=== PATIENT | male | born 1950 | race Two or more races ===

== ENCOUNTER 2018-08-28 18:36 | Emergency (ER) | payer OTHER ==
[~2018-08-28] VITALS: Ht 180.3 cm; Wt 90.7 kg
[2018-08-28 19:12] LABS: BASO # 0.1 x10^3/uL (0.0-0.2); BASO % 1 % (0-3); EOS % 0 % (0-3); HEMATOCRIT 45.3 % (39.0-53.0); HEMOGLOBIN 15.4 g/dL (13.0-17.5); LYMPH # 1.7 x10^3/uL (1.0-4.8); LYMPH % 19 % (24-48); MEAN CORPUSCULAR HEMOGLOBIN 30 pg (25-35); MEAN CORPUSCULAR HGB CONC 34 g/dL (31-37); MEAN CORPUSCULAR VOLUME 89 fL (79-100); MONO # 1.4 x10^3/uL (0.0-1.1); MONO % 16 % (0-9); NEUT # 5.9 x10^3uL (1.8-7.7); NEUT % 65 % (31-73); PLATELET COUNT 137 x10^3/uL (140-400); RED BLOOD COUNT 5.07 x10^6/uL (4.30-5.70); RED CELL DISTRIBUTION WIDTH 14.4 % (11.5-14.5); WHITE BLOOD COUNT 9.1 x10^3/uL (4.0-11.0)
[2018-08-28 19:21] LABS: CALCIUM 8.7 mg/dL (8.5-10.1); CREATININE 1.1 mg/dL (0.7-1.3); GFR 66.6; POTASSIUM 3.7 mmol/L (3.5-5.1)
[2018-08-28 19:25] LABS: PROTHROMBIN TIME PATIENT 13.5 SEC (11.7-14.0)
[2018-08-28 19:27] LABS: ALBUMIN 3.6 g/dL (3.4-5.0); ALBUMIN/GLOBULIN RATIO 0.9 (1.0-1.7); MAGNESIUM 2.4 mg/dL (1.8-2.4); TOTAL BILIRUBIN 0.8 mg/dL (0.2-1.0); TOTAL PROTEIN 7.8 g/dL (6.4-8.2)
[2018-08-28] MEDS ORDERED: IV NORMAL SALINE 1000ML BAG 1,000 ML IV ONE (19:30)
[2018-08-28] MEDS ORDERED: DEXAMETHASONE SOD PHOS 20 MG/5 ML VIAL. IV ONE (19:30)
[2018-08-28 19:35] LABS: CREATINE KINASE 66 U/L (39-308)
--- NOTE | 2018-08-28 19:42 | PHYS DOC ---
Past Medical History Past Medical History: No Pertinent History Past Surgical History: No Surgical History Alcohol Use: Occasionally Drug Use: None Adult General Chief Complaint Chief Complaint: WEAKNESS/GENERALIZED HPI HPI Patient is a 68 year old male who presents with two days of fever, chills, cough, headache, and diarrhea. He has not taken his temperature at home but has felt warm with nighttime chills. Temperature in ED was 99.5 orally. He has not taken any medications for his symptoms. Patient denies any sick contacts. He has not been able to eat food since his symptoms began but has been able to drink wa ter. Patient denies sputum production, bloody diarrhea, abdominal pain, neck pain, dizziness, sore throat or focal weakness. He states he is "just not feeling well" and that he "hurts all over". Review of Systems Review of Systems Constitutional: Reports fever or chills [] Eyes: Denies change in visual acuity, redness, or eye pain [] HENT: Reports runny nose. Denies sore throat. [] Respiratory: Denies cough or shortness of breath [] Cardiovascular: No additional information not addressed in HPI [] GI: Denies abdominal pain, nausea, vomiting, bloody stools or diarrhea [] : Denies dysuria or hematuria [] Musculoskeletal: Denies back pain or joint pain [] Integument: Denies rash or skin lesions [] Neurologic: Denies headache, focal weakness or sensory changes [] Endocrine: Denies polyuria or polydipsia [] All other systems were reviewed and found to be within normal limits, except as documented in this note. Current Medications Current Medications Current Medications Medications (Trade) Dose Ordered Sig/Jenny Start Time Stop Time Status Last Admin Dose Admin Dexamethasone Sodium Phosphate (Decadron) 10 mg 1X ONCE 08/28/18 20:00 08/28/18 20:01 DC 08/28/18 20:00 10 MG Sodium Chloride 1,000 ml @ 1,000 mls/hr 1X ONCE 08/28/18 19:30 08/28/18 20:29 DC 08/28/18 20:00 1,000 MLS/HR Allergies Allergies Allergies Coded Allergies Type Severity Reaction Last Updated Verified No Known Drug Allergies 08/28/18 No Physical Exam Physical Exam Constitutional: Well developed, well nourished, no acute distress, non-toxic appearance. [] HENT: Normocephalic, atraumatic, bilateral external ears normal, oropharynx moist, no oral exudates, nose normal. [] Eyes: PERRLA, EOMI, conjunctiva normal, no discharge. [] Neck: Normal range of motion, no tenderness, supple, no stridor. [] Cardiovascular:Heart rate regular rhythm, no murmur [] Lungs & Thorax: Bilateral breath sounds clear to auscultation [] Abdomen: Bowel sounds normal, soft, no tenderness, no masses, no pulsatile masses. [] Skin: Warm, dry, no erythema, no rash. [] Back: No tenderness, no CVA tenderness. [] Extremities: No tenderness, no cyanosis, no clubbing, ROM intact, no edema. [] Neurologic: Alert and oriented X 3, normal motor function, normal sensory function, no focal deficits noted. [] Psychologic: Affect normal, judgement normal, mood normal. [] Current Patient Data Vital Signs Vital Signs Date Time Temp Pulse Resp B/P (MAP) Pulse Ox O2 Delivery O2 Flow Rate FiO2 08/28/18 21:32 77 96 08/28/18 20:33 20 08/28/18 18:42 99.5 126/75 (92) Room Air 99.5 Lab Values Laboratory Tests Test 08/28/18 19:02 08/28/18 20:50 White Blood Count 9.1 x10^3/uL (4.0-11.0) Red Blood Count 5.07 x10^6/uL (4.30-5.70) Hemoglobin 15.4 g/dL (13.0-17.5) Hematocrit 45.3 % (39.0-53.0) Mean Corpuscular Volume 89 fL (79-100) Mean Corpuscular Hemoglobin 30 pg (25-35) Mean Corpuscular Hemoglobin Concent 34 g/dL (31-37) Red Cell Distribution Width 14.4 % (11.5-14.5) Platelet Count 137 x10^3/uL (140-400) L Neutrophils (%) (Auto) 65 % (31-73) Lymphocytes (%) (Auto) 19 % (24-48) L Monocytes (%) (Auto) 16 % (0-9) H Eosinophils (%) (Auto) 0 % (0-3) Basophils (%) (Auto) 1 % (0-3) Neutrophils # (Auto) 5.9 x10^3uL (1.8-7.7) Lymphocytes # (Auto) 1.7 x10^3/uL (1.0-4.8) Monocytes # (Auto) 1.4 x10^3/uL (0.0-1.1) H Eosinophils # (Auto) 0.0 x10^3/uL (0.0-0.7) Basophils # (Auto) 0.1 x10^3/uL (0.0-0.2) Prothrombin Time 13.5 SEC (11.7-14.0) Prothrombin Time INR 1.1 (0.8-1.1) PTT 35 SEC (24-38) Sodium Level 137 mmol/L (136-145) Potassium Level 3.7 mmol/L (3.5-5.1) Chloride Level 100 mmol/L (98-107) Carbon Dioxide Level 24 mmol/L (21-32) Anion Gap 13 (6-14) Blood Urea Nitrogen 18 mg/dL (8-26) Creatinine 1.1 mg/dL (0.7-1.3) Estimated GFR (Cockcroft-Gault) 66.6 BUN/Creatinine Ratio 16 (6-20) Glucose Level 91 mg/dL (70-99) Lactic Acid Level 0.9 mmol/L (0.4-2.0) Calcium Level 8.7 mg/dL (8.5-10.1) Magnesium Level 2.4 mg/dL (1.8-2.4) Total Bilirubin 0.8 mg/dL (0.2-1.0) Aspartate Amino Transferase (AST) 22 U/L (15-37) Alanine Aminotransferase (ALT) 27 U/L (16-63) Alkaline Phosphatase 47 U/L (46-116) Creatine Kinase 66 U/L (39-308) Creatine Kinase MB (Mass) < 0.5 ng/mL (0.0-3.6) Creatine Kinase MB Relative Index % (0-4) Troponin I Quantitative < 0.017 ng/mL (0.000-0.055) Total Protein 7.8 g/dL (6.4-8.2) Albumin 3.6 g/dL (3.4-5.0) Albumin/Globulin Ratio 0.9 (1.0-1.7) L Lipase 104 U/L (73-393) Urine Color Eunice Urine Clarity Clear Urine pH 5.0 Urine Specific [place] 1.025 Urine Protein 30 mg/dL (NEG-TRACE) Urine Glucose (UA) Negative mg/dL (NEG) Urine Ketones (Stick) 15 mg/dL (NEG) Urine Blood Moderate (NEG) Urine Nitrite Negative (NEG) Urine Bilirubin Small (NEG) Urine Urobilinogen Dipstick 0.2 mg/dL (0.2 mg/dL) Urine Leukocyte Esterase Negative (NEG) Urine RBC 1-2 /HPF (0-2) Urine WBC 1-4 /HPF (0-4) Urine Squamous Epithelial Cells Occ /LPF Urine Bacteria 0 /HPF (0-FEW) Urine Mucus Mod /LPF Laboratory Tests 08/28/18 19:02 Laboratory Tests 08/28/18 19:02 EKG EKG @1849: Normal sinus rhythm with rate of 90. Normal axis. No Q waves. T wave inversion in III and aVF. No ST segment elevation or depression.[] Radiology/Procedures Radiology/Procedures Chest PA and Lateral: Chest X-ray showed possible atelectasis at cardiac borders without evidence of consolidation or effusion. Mild cardiomegaly noted. No acute cardiopulmonary process. Preliminary report provided by ED physician.[] Course & Med Decision Making Course & Med Decision Making Pertinent Labs and Imaging studies reviewed. (See chart for details) Patient is a 68 year old male who presented to the ED with two days of feeling feverish, cough, headache and diarrhea. He has also described some fatigue and generalized weakness. Temp of 99.5 in the ED. CBC, PT/PTT, Lipase, and CMP all negative. Troponin and CK-MB negative. Lactate negative. Chest X-ray showed possible atelectasis at cardiac borders without evidence of consolidation or effusion. Mild cardiomegaly noted. His presentation is likely due to bronchitis. He is stable and agreeable to be discharged home at this point. Will provide with Rx for azithromycin with instructions to begin antibiotics if he does not feel better in 48 hours. Patient stable for discharge with outpatient follow-up with PCP. Discussed fin dings and plan with patient, who acknowledge understanding and agreement. [] Dragon Disclaimer Dragon Disclaimer This electronic medical record was generated, in whole or in part, using a voice recognition dictation system. Departure Departure Impression: Primary Impression: Bronchitis Disposition: 01 HOME, SELF-CARE Condition: STABLE Patient Instructions: Acute Bronchitis, [id number] Additional Instructions: Hold antibiotics for 48 hours. If symptoms worsen or for fever > 100.3 F after 48 hours then start antibiotics as prescribed. Scripts Albuterol Sulfate (PROAIR HFA INHALER) 8.5 Gm Hfa.aer.ad 1 PUFF INH PRN Q6HRS, #1 INHALER 0 Refills Prov: MORA SERVIN DO 08/28/18 Prednisone (PREDNISONE) 20 Mg Tablet 2 TAB PO DAILY, #8 TAB Prov: MORA SERVIN DO 08/28/18 Azithromycin (ZITHROMAX) 250 Mg Tablet 1 PKG PO UD, #6 TAB Take 2 tablets on day 1 and then 1 tablet each day for the next 4 days as directed Prov: MORA SERVIN DO 08/28/18 MORA SERVIN DO August 28, 2018 19:42
[2018-08-28] MEDS ORDERED: DEXAMETHASONE SOD PHOS 4 MG/ML VIAL IV ONE (20:00)
[2018-08-28 21:02] LABS: BILIRUBIN,URINE SMALL (NEG); CLARITY,URINE CLEAR; COLOR,URINE AMBER; NITRITE,URINE NEGATIVE (NEG); PROTEIN,URINE 30 mg/dL (NEG-TRACE); UROBILINOGEN,URINE 0.2 mg/dL (0.2 mg/dL)
[2018-08-28 21:08] LABS: BACTERIA,URINE 0 /HPF (0-FEW); SQUAMOUS EPITHELIAL CELL,UR OCC /LPF
[2018-08-28 21:32] VITALS: BP 148/88
[2018-08-28] MEDS ORDERED: AZIT250T PO (21:33)
[2018-08-28] MEDS ORDERED: PRED20TA PO (21:33)
[2018-08-28] MEDS ORDERED: ALBU2.5V8 INH (21:33)
--- NOTE | 2018-08-28 23:58 | RAD ---
PA and lateral chest radiographs 08/28/2018 CLINICAL HISTORY: Cough. PA and lateral digital radiographs of the chest were obtained. No previous studies are available for comparison. The cardiac silhouette is mildly enlarged. The thoracic aorta is tortuous. Atherosclerotic calcification of the thoracic aorta is seen. No acute pulmonary infiltrate is seen. No pleural effusion or pneumothorax is noted. Degenerative changes are seen involving the thoracic spine. IMPRESSION: No acute pulmonary infiltrate is seen. Electronically signed by: Gera Suazo MD (08/28/2018 11:55 PM) [facility]
--- NOTE | 2018-08-30 11:29 | EKG ---
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
== END 2018-08-28 21:38 | disposition home or self-care (01) ==
LOC: ER 18:36
DX: J40 Bronchitis, not specified as acute or chronic (principal); R51 Headache; R19.7 Diarrhea, unspecified
CPT/HCPCS: 36415; 71046; 80053; 81001; 82553; 83605; 83690; 83735; 84484; 85025; 85610; 85730; 93005; 96361; 96374; 99285; J1100; J7030

== ENCOUNTER 2018-11-07 13:30 | Emergency (ER) | payer OTHER ==
[~2018-11-07] VITALS: Ht 180.3 cm; Wt 99.8 kg
[~2018-11-07 13:30] MED LIST: ALBU2.5V8 INH; AZIT250T PO; PRED20TA PO
[2018-11-07 13:42] VITALS: BP 150/74
--- NOTE | 2018-11-07 14:07 | PHYS DOC ---
Past Medical History Past Medical History: No Pertinent History Additional Past Surgical Histo: cataracts Alcohol Use: Occasionally Drug Use: None Adult General Chief Complaint Chief Complaint: EYE PROBLEMS [facility] Patient is a 68 year old male who presents to the emergency Department today with concerns of bleeding in his left eye. Patient states he had an appointment with Dr. Spencer on November 04, 2018 at which the doctor injected his eye several times. He denies any pain, vision changes, or injury. ROS Patient denies any fever, headache, nausea, vomiting, cough, shortness of breath, blurry vision, neck pain, or vision changes. All other ROS is neg unless otherwise noted in HPI. Review of Systems Review of Systems SEE ABOVE Allergies Allergies Allergies Coded Allergies Type Severity Reaction Last Updated Verified No Known Drug Allergies 08/28/18 No Physical Exam Physical Exam SEE ABOVE Constitutional: Well developed, well nourished, no acute distress, non-toxic appearance. [] HENT: Normocephalic, atraumatic, bilateral external ears normal, oropharynx moist, no oral exudates, nose normal. [] Eyes: PERRLA, EOMI, bilateral cataracts, no discharge; subconjunctival hemorrhage noted to L eye Neck: Normal range of motion, no stridor. [] Lungs & Thorax: Respirations even and unlabored, no retractions, no respiratory distress Skin: Warm, dry, no erythema, no rash. [] Extremities: No cyanosis, ROM intact Neurologic: Alert and oriented X 3, no focal deficits noted. [] Psychologic: Affect normal, judgement normal, mood normal. [] Current Patient Data Vital Signs Vital Signs Date Time Temp Pulse Resp B/P (MAP) Pulse Ox O2 Delivery O2 Flow Rate FiO2 11/07/18 13:42 98.1 63 18 150/74 (99) 96 Room Air 98.1 EKG EKG [] Radiology/Procedures Radiology/Procedures [] Course & Med Decision Making Course & Med Decision Making Pertinent Labs and Imaging studies reviewed. (See chart for details) Dx: conjunctival hemorrhage left eye 1408- spoke with Dr. Spencer per Dr. Spencer instruct the patient to apply ice packs and use the drops that were prescribed to him after his cataract procedure twice a day. This finding is normal, and expected. Instruct patient to call the office on Friday for a follow-up appointment then with Dr. Spencer. [] Dragon Disclaimer Dragon Disclaimer This electronic medical record was generated, in whole or in part, using a voice recognition dictation system. Departure Departure Impression: Primary Impression: Conjunctival hemorrhage of left eye Disposition: HOME, SELF-CARE Condition: STABLE Referrals: MORA DEAN MD (PCP) Patient Instructions: Subconjunctival Hemorrhage-Brief Additional Instructions: Follow up with Dr. Spencer on Friday, use the eye drops he prescribed you after surgery twice a day until then. You may also apply ice packs. Return to the ER if symptoms worsen. SILVINA LLANES PEN RIDER Nov 07, 2018 14:07
== END 2018-11-07 14:25 | disposition home or self-care (01) ==
LOC: ER 13:30
DX: H11.32 Conjunctival hemorrhage, left eye (principal)
CPT/HCPCS: 99282

== ENCOUNTER → 2020-02-01 | Outpatient (CLI) | payer MEDICARE ==
[~2020-02-01] MED LIST changes: +REGADENOSON 0.4 MG/5 ML DISP.SYRIN. IV ONE
--- NOTE | 2020-02-01 14:12 | CARD ---
MR#: [id number] Date of Study: 02/01/2020 Ordering Physician: CONSUELO HOLLINGSWORTH, Referring Physician: CONSUELO HOLLINGSWORTH Tech: Elba Greene RDCS APPROVED REPORT EXAM: Two-dimensional and M-mode echocardiogram with Doppler and color Doppler. Other Information Quality : Fair Technically limited study due to body habitus. INDICATION Dyspnea on Exertion 2D DIMENSIONS RVDd3.4 (2.9-3.5cm)Left Atrium(2D)3.3 (1.6-4.0cm) IVSd0.9 (0.7-1.1cm)Aortic Root(2D)3.1 (2.0-3.7cm) LVDd5.6 (3.9-5.9cm)LVOT Diameter2.4 (1.8-2.4cm) PWd0.9 (0.7-1.1cm)LVDs4.4 (2.5-4.0cm) FS (%) 21.8 %SV67.4 ml LVEF(%)50.0 (>50%) Aortic Valve AoV Peak Arturo.108.9cm/sAoV VTI20.4cm AO Peak GR.4.7mmHgLVOT Peak Arturo.103.9cm/s AO Mean GR.3mmHgAVA (VMAX)4.14cm2 DELFIN (VTI)4.35jb3KW P 1/2 [id number] Mitral Valve MV E Ckrqsiyo78.0cm/sMV DECEL [id number] MV A Vsthlvmn61.2cm/sE/A Ratio0.7 Pulmonary Vein S1 Ytveewfc75.6cm/sD2 Xestutji03.2cm/s LEFT VENTRICLE The left ventricle is normal size. There is normal left ventricular wall thickness. The left ventricu lar systolic function is normal and the ejection fraction is within normal range. The Ejection Fracti on is 50-55%. There is normal LV segmental wall motion. Transmitral Doppler flow pattern is Grade I-a bnormal relaxation pattern. RIGHT VENTRICLE The right ventricle is normal size. The right ventricular systolic function is normal. ATRIA The left atrium size is normal. The right atrium size is normal. The interatrial septum is intact wit h no evidence for an atrial septal defect or patent foramen ovale as noted on 2-D or Doppler imaging. AORTIC VALVE The aortic valve is calcified but opens well. Doppler and Color Flow revealed trace to mild aortic re gurgitation. There is no significant aortic valvular stenosis. MITRAL VALVE The mitral valve is calcified but opens well. There is no evidence of mitral valve prolapse. There is no mitral valve stenosis. Doppler and Color Flow revealed no mitral valve regurgitation noted. TRICUSPID VALVE The tricuspid valve is normal in structure and function. Doppler and Color Flow revealed no tricuspid valve regurgitation noted. There is no tricuspid valve stenosis. PULMONIC VALVE The pulmonic valve is not well visualized. Doppler and Color Flow revealed no pulmonic valvular regur gitation. There is no pulmonic valvular stenosis. GREAT VESSELS The aortic root is normal in size. The ascending aorta is mildly dilated at 4.0 cm. The IVC is normal in size and collapses >50% with inspiration. PERICARDIAL EFFUSION There is no evidence of significant pericardial effusion. Critical Notification Critical Value: No <Conclusion> The left ventricular systolic function is normal and the ejection fraction is within normal range. Th e Ejection Fraction is 50-55%. There is normal LV segmental wall motion. Doppler and Color Flow revealed trace to mild aortic regurgitation. The ascending aorta is mildly dilated at 4.0 cm. Signed by : Galindo Dey, Electronically Approved : 02/01/2020 14:12:00
--- NOTE | 2020-02-01 14:31 | RAD ---
MR#: [id number] Date of Study: 02/01/2020 Ordering Physician: CONSUELO HOLLINGSWORTH, Referring Physician: SEJAL BETTS Tech: RT Jaden NielsenR) (N) APPROVED REPORT Test Type: Pharmacological Stress Nurse/Tech: Mendy Flores RN Test Indications: Dyspnea on exertion Cardiac History: Hypertension Medications: See Electronic Medical Record Medical History: See Electronic Medical Record Resting ECG: SB Resting Heart Rate: 53 bpm Resting Blood Pressure: 179/92mmHg Pretest Chest Pain: No chest pain Nurse/Tech Notes S1,S2 and lungs slightly diminished in the bases. Consent: The procedure was explained to the patient in lay terms. Informed consent was witnessed. Winston eout was entered into [facility]. History and Stress Test performed by RT Morales (R) (N) Pharm. Details Pharmacologic stress testing was performed using 0.4mg per 5ml of regadenoson given intravenously ove r 7-10 seconds. Stress Symptoms No chest pain or symptoms. POST EXERCISE Reason for Termination: Infusion complete Target HR: No Max HR: 127 bpm 99% of Maximum Predicted HR: 128 bpm Max Blood Pressure: 166/89mmHg Blood Pressure response to exercise: Normal blood pressure response during stress. Heart Rate response to exercise: WNL Chest Pain: No. Arrhythmia: No. ST Change: No. INTERPRETATION Stress EKG Conclusion: No evidence of stress induced EKG changes. Imaging Protocol IMAGE PROTOCOL: Rest Tc-99m/stress Tc-99m 1 day Rest: Stress: Viability: Radiopharm.Tc99m CgapkcpveBc52a Sestamibi Pdjq44jEy 31mCi Duration 15min. 10min. Img Date 02/01/2020 02/01/2020 Inj-Img Lurp81vep. 60min. Rest Admin Site:IV - Right AntecubitalAdministrator:RT Morales (R)(N) Stress Admin Site: IV - Right AntecubitalAdministrator: HARITHA Wick, ARRT (R)(N) STRESS DATA End Diast. Vol.103.0mlAv. Heart Rate82.0bpm End Syst. Vol.26.0mlCO Index BSA0.0L/min Myocardial Szvc919.0gEject. Axeavthe04.0% Stress Rates Pk. Fill Rate3.04EDV/secLVtime Pk. Fill 223.41msec Pk. Empty Rate3.66ESV/secLVtime Pk. Keqea040.76msec / Pk. Fill1.13EDV/sec Stress Scores Regional WT0.00Summed WT5.00 Regional WM0.00Summed WM0.00 LV Perfusion There is a small basal lateral wall perfusion defect at stress that fully resolves with rest. Wall Motion Normal wall motion. Ef > 55% LV Perf. Quant 17 Seg. SSS1.00 17 Seg. SRS0.00 17 Seg. SDS1.00 Stress Defect Extent (% LAD)0.00Rest Defect Extent (% LAD)0.00Rev. Defect Extent (% LAD)0.00 Stress Defect Extent (% LCX) 25.00Rest Defect Extent (% LCX)0.00Rev. Defect Extent (% LCX)25.00 Stress Defect Extent (% RCA)0.00Rest Defect Extent (% RCA)0.00Rev. Defect Extent (% RCA)0.00 Stress Defect Extent (% EMILY)4.30Rest Defect Extent (% EMILY)0.00Rev. Defect Extent (% EMILY)4.30 Other Information Quality:Good Risk Assessment: Low Risk Conclusion 1. No evidence of stress induced EKG changes. 2. Small basal lateral wall reversible perfusion defect, likely artifactual as this does not correspo nd to any specific anatomical lesion. 3. Normal wall motion with EF > 55% 4. Low risk study overall. Signed by : Galindo Dey, Electronically Approved : 02/01/2020 14:31:15
== END ==
LOC: ECHO 07:37
PROVIDERS: ATTEND Internal Medicine Cardiovascular Disease
DX: I08.0 Rheumatic disorders of both mitral and aortic valves (principal); I10 Essential (primary) hypertension
CPT/HCPCS: 78452; 93017; 93306; A9500; J2785

== ENCOUNTER 2021-06-14 14:04 | Emergency (ER) | payer MEDICARE ==
[~2021-06-14] VITALS: Ht 180.3 cm; Wt 112.3 kg
[~2021-06-14 14:04] MED LIST changes: -REGADENOSON 0.4 MG/5 ML DISP.SYRIN. IV ONE
--- NOTE | 2021-06-14 14:26 | PHYS DOC ---
Past Medical History Past Medical History: No Pertinent History Additional Past Surgical Histo: cataracts Smoking Status: Never Smoker Alcohol Use: Occasionally Drug Use: None General Adult EDM: Chief Complaint: LOWER EXTREMITY SWELLING HPI: HPI: Patient is a 71 year old Male who presents with increased lower extremity swelling over the last 3 weeks. He states that 2 days ago it was very bad and he went into the bedroom and put his feet up onto the wall that they were above his heart for about 2 hours and he states the swelling got better. He states he is not on his feet very much and is usually sitting in bed or at home watching TV. Patient states that he is also short of breath all the time. He has a history of smoking marijuana, cataracts, hypertension. He denies chest pain, dizziness, headache, vision change, numbness or tingling, abdominal pain, nausea, vomiting, diarrhea, fever, cough, wheezing, focal weakness. Review of Systems: Review of Systems: Constitutional: Denies fever or chills. [] Eyes: Denies change in visual acuity. [] HENT: Denies nasal congestion or sore throat. [] Respiratory: Denies cough or +shortness of breath. [] Cardiovascular: Denies chest pain or + bilateral lower edema. [] GI: Denies abdominal pain, nausea, vomiting, bloody stools or diarrhea. [] : Denies dysuria. [] Musculoskeletal: Denies back pain or joint pain. [] Integument: Denies rash. [] Neurologic: Denies headache, focal weakness or sensory changes. [] Endocrine: Denies polyuria or polydipsia. [] Lymphatic: Denies swollen glands. [] Psychiatric: Denies depression or anxiety. [] Heart Score: C/O Chest Pain: No HEART Score for Chest Pain: HEART Score for Chest Pain Response (Comments) Value History Slighlty/Non-Suspicious 0 ECG Normal 0 Age > 65 2 Risk Factors 1 or 2 Risk Factors 1 Troponin < Normal Limit 0 Total 3 Risk Factors: Risk Factors: DM, Current or recent (<one month) smoker, HTN, HLP, family history of CAD, obesity. Risk Scores: Score 0 - 3: 2.5% MACE over next 6 weeks - Discharge Home Score 4 - 6: 20.3% MACE over next 6 weeks - Admit for Clinical Observation Score 7 - 10: 72.7% MACE over next 6 weeks - Early Invasive Strategies Allergies: Allergies: Allergies Coded Allergies Type Severity Reaction Last Updated Verified No Known Drug Allergies 06/14/21 No Physical Exam: PE: Constitutional: Well developed, well nourished, no acute distress, non-toxic appearance. [] HENT: Normocephalic, atraumatic, bilateral external ears normal, oropharynx moist, no oral exudates, nose normal. [] Eyes: PERRLA, EOMI, conjunctiva normal, no discharge. [] Neck: Normal range of motion, no tenderness, supple, no stridor. [] Cardiovascular:Heart rate regular rhythm, no murmur [] Lungs & Thorax: Bilateral upper breath sounds clear and lower diminished to auscultation [] Abdomen: Bowel sounds normal, soft, no tenderness, no masses, no pulsatile masses. [] Skin: Warm, dry, no erythema, no rash. [] Back: No tenderness, no CVA tenderness. [] Extremities: No tenderness, no cyanosis, no clubbing, ROM intact, bilateral lower 1+ edema. [] Neurologic: Alert and oriented X 3, normal motor function, normal sensory function, no focal deficits noted. [] Psychologic: Affect normal, judgement normal, mood normal. [] EKG: EK and read by Dr Johnson as Sinus Rhythm and no STEMI Radiology/Procedures: Radiology/Procedures: [] Impression: [facility] [address] [place], [place] [id number] IMAGING REPORT Signed PATIENT: KASSIDY RAYGOZA EACCOUNT: [id number] : 1950 LOCATION: ER AGE: 71 SEX: M EXAM STATUS: REG ER ORD. PHYSICIAN: QUIN BLEDSOE APRN REASON: EXTREMITY SWELLING, SOA PROCEDURE: PORTABLE CHEST 1V AP chest. HISTORY: STEMI swelling, short of breath AP view was taken of the chest. Lungs are free of infiltrates. Heart upper normal in size. There is no effusion. IMPRESSION: 1. No acute infiltrates. Electronically signed by: Hunter Melvin MD (06/14/2021 2:40 PM) [facility] DICTATED and SIGNED BY: HUNTER MELVIN MD DATE: 06/14/[id number] [facility] [address] [place], [place] [id number] IMAGING REPORT Signed PATIENT: KASSIDY RAYGOZA EACCOUNT: [id number] : 1950 LOCATION: ER AGE: 71 SEX: M EXAM STATUS: REG ER ORD. PHYSICIAN: QUIN BLEDSOE APRN REASON: swelling PROCEDURE: VENOUS LOWER EXT BILATERAL Bilateral lower extremity venous Doppler ultrasound History: Reason: swelling / Comparison: None. Procedure: Color flow Doppler, Doppler spectral analysis, and 2D images are obtained with and without compression in the area of the common femoral vein, superficial femoral vein - femoral vein junction, main femoral vein (superficial femoral vein) and popliteal vein. Veins of the proximal calf are also imaged. Findings: There is normal color flow, augmentation, and compressibility of all visualized vein segments. No evidence of deep venous thrombus is present. IMPRESSION: No evidence of right or left lower extremity deep venous thrombosis. Electronically signed by: Twin Blair MD (06/14/2021 3:01 PM) [facility] DICTATED and SIGNED BY: TWIN BLAIR MD DATE: 06/14/21 [id number] 0 Course & Med Decision Making: Course & Med Decision Making Pertinent Labs and Imaging studies reviewed. (See chart for details) See HPI. Alert and oriented x4. Ambulatory steady gait. Speaks in full clear sentences. Skin pink warm and dry. Bilateral pedal pulses are strong are present. No calf tenderness. Negative Homans' sign. No recent travel. No recent surgery or trauma. Well score 0. Bilateral lower extremity 1+ swelling. No pitting. Cap refill less than 2 seconds. Lungs are clear in upper lobes and diminished in lower lobes. Morbidly obese. Patient had an echo done in 2019 which showed greater than 55% ejection fraction. Vital signs within normal limits. No pain with breathing. Patient is not hypoxic. He continues to deny chest pain. He is in no respiratory distress. Blood work is unremarkable. Ultrasound of bilateral lower extremity shows no acute findings. Chest x-ray shows no acute findings. Patient is stable and discharged home. [] Dragon Disclaimer: Dragon Disclaimer: This electronic medical record was generated, in whole or in part, using a voice recognition dictation system. Departure Departure Impression: Primary Impression: Bilateral swelling of feet Disposition: HOME / SELF CARE / HOMELESS Condition: STABLE Referrals: MORA DEAN MD (PCP) Patient Instructions: Diet - 1.5 Gram Low Sodium, [id number], Peripheral Edema Additional Instructions: Follow-up with your primary care doctor by calling in the morning to get a appointment as soon as possible. Drink plenty of fluids. Try to keep your feet elevated when you are sitting and try to not be on your feet for long periods of time. Also you can try to buy some compression stockings for your legs to help with swelling. If you begin having severe shortness of breath or chest pain return emergency room. I would also try to not smoke any marijuana as this does damage your lungs and may cause shortness of breath. Continue taking all your medications as they are prescribed. QUIN BLEDSOE APRN Jun 14, 2021 14:26
--- NOTE | 2021-06-14 14:43 | RAD ---
AP chest. HISTORY: STEMI swelling, short of breath AP view was taken of the chest. Lungs are free of infiltrates. Heart upper normal in size. There is n o effusion. IMPRESSION: 1. No acute infiltrates. Electronically signed by: Hunter Melvin MD (06/14/2021 2:40 PM) [facility]
[2021-06-14 14:50] LABS: BASO # 0.1 x10^3/uL (0.0-0.2); BASO % 1 % (0-3); EOS # 0.2 x10^3/uL (0.0-0.7); EOS % 3 % (0-3); HEMATOCRIT 45.1 % (39.0-53.0); LYMPH % 29 % (24-48); MEAN CORPUSCULAR HEMOGLOBIN 30 pg (25-35); MEAN CORPUSCULAR HGB CONC 33 g/dL (31-37); MEAN CORPUSCULAR VOLUME 91 fL (79-100); MONO # 0.5 x10^3/uL (0.0-1.1); MONO % 7 % (0-9); NEUT # 4.2 x10^3/uL (1.8-7.7); NEUT % 61 % (31-73); PLATELET COUNT 168 x10^3/uL (140-400); RED BLOOD COUNT 4.96 x10^6/uL (4.30-5.70); RED CELL DISTRIBUTION WIDTH 14.5 % (11.5-14.5)
[2021-06-14 14:59] LABS: CALCIUM 8.5 mg/dL (8.5-10.1); CREATININE 1.1 mg/dL (0.7-1.3); POTASSIUM 3.7 mmol/L (3.5-5.1)
--- NOTE | 2021-06-14 15:03 | RAD ---
Bilateral lower extremity venous Doppler ultrasound History: Reason: swelling / Comparison: None. Procedure: Color flow Doppler, Doppler spectral analysis, and 2D images are obtained with and without compression in the area of the common femoral vein, superficial femoral vein - femoral vein junction , main femoral vein (superficial femoral vein) and popliteal vein. Veins of the proximal calf are als o imaged. Findings: There is normal color flow, augmentation, and compressibility of all visualized vein segments. No heather dence of deep venous thrombus is present. IMPRESSION: No evidence of right or left lower extremity deep venous thrombosis. Electronically signed by: Twin Blair MD (06/14/2021 3:01 PM) [facility]
[2021-06-14 15:06] LABS: ALBUMIN 3.5 g/dL (3.4-5.0); ALBUMIN/GLOBULIN RATIO 0.8 (1.0-1.7); TOTAL BILIRUBIN 0.8 mg/dL (0.2-1.0); TOTAL PROTEIN 7.7 g/dL (6.4-8.2)
[2021-06-14 15:27] LABS: BILIRUBIN,URINE NEGATIVE (NEG); CLARITY,URINE CLEAR; COLOR,URINE YELLOW; NITRITE,URINE NEGATIVE (NEG); PH,URINE 5.5 (<5.0-8.0); PROTEIN,URINE NEGATIVE (NEG-TRACE); UROBILINOGEN,URINE 0.2 mg/dL (0.2 mg/dL)
[2021-06-14 15:29] LABS: BACTERIA,URINE 0 /HPF (0-FEW); WBC,URINE 0 /HPF (0-4)
[2021-06-14 15:38] VITALS: BP 149/75
--- NOTE | 2021-06-14 15:40 | EKG ---
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
== END 2021-06-14 15:48 | disposition home or self-care (01) ==
LOC: ER 14:04
DX: R22.43 Localized swelling, mass and lump, lower limb, bilateral (principal); R06.02 Shortness of breath; I10 Essential (primary) hypertension; Z87.891 Personal history of nicotine dependence
CPT/HCPCS: 36415; 71045; 80053; 81001; 83880; 84484; 85025; 93005; 93970; 99285-25

== ENCOUNTER 2021-08-07 12:50 | Emergency (ER) | payer MEDICARE ==
[~2021-08-07] VITALS: Ht 180.3 cm; Wt 109.7 kg
--- NOTE | 2021-08-07 13:48 | RAD ---
XR CHEST 1V History: Reason: SOA, fever, cough / Spl. Instructions: / History: Comparison: June 14, 2021 Findings: No consolidation or pleural effusion. Normal heart size. No pneumothorax. Impression: 1. No acute cardiopulmonary process. Electronically signed by: Bakari Hernández DO (08/07/2021 1:46 PM) [id number]
[2021-08-07 14:19] LABS: BASO # 0.1 x10^3/uL (0.0-0.2); BASO % 1 % (0-3); EOS # 0.3 x10^3/uL (0.0-0.7); EOS % 4 % (0-3); HEMATOCRIT 44.7 % (39.0-53.0); HEMOGLOBIN 15.3 g/dL (13.0-17.5); LYMPH % 21 % (24-48); MEAN CORPUSCULAR HEMOGLOBIN 31 pg (25-35); MEAN CORPUSCULAR HGB CONC 34 g/dL (31-37); MEAN CORPUSCULAR VOLUME 90 fL (79-100); MONO # 0.9 x10^3/uL (0.0-1.1); MONO % 10 % (0-9); NEUT # 6.1 x10^3/uL (1.8-7.7); NEUT % 65 % (31-73); PLATELET COUNT 210 x10^3/uL (140-400); RED BLOOD COUNT 4.97 x10^6/uL (4.30-5.70); RED CELL DISTRIBUTION WIDTH 14.5 % (11.5-14.5); WHITE BLOOD COUNT 9.4 x10^3/uL (4.0-11.0)
[2021-08-07 14:52] LABS: CALCIUM 8.5 mg/dL (8.5-10.1); CREATININE 1.1 mg/dL (0.7-1.3)
[2021-08-07 15:00] LABS: ALBUMIN 3.4 g/dL (3.4-5.0); ALBUMIN/GLOBULIN RATIO 0.9 (1.0-1.7); MAGNESIUM 2.5 mg/dL (1.8-2.4); TOTAL BILIRUBIN 0.6 mg/dL (0.2-1.0); TOTAL PROTEIN 7.4 g/dL (6.4-8.2)
[2021-08-07 15:14] VITALS: BP 126/76
[2021-08-07 15:31] LABS: INFLUENZA A PATIENT NEGATIVE (NEGATIVE); INFLUENZA B PATIENT NEGATIVE (NEGATIVE)
[2021-08-07] MEDS ORDERED: VENTOLIN HFA18 GM INH (15:34)
--- NOTE | 2021-08-07 15:35 | PHYS DOC ---
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 Patient states he has been seen in our ED and worked up and they could not find any acute cause for his symptoms. He has been following up with his PCP as well. Denies any chest pain. Denies any fever. Denies any nasal congestion. (RADHA BEARD STUDENT UNION CONSULTANT) Review of Systems: Review of Systems: Constitutional: Denies fever or chills. [] Eyes: Denies change in visual acuity. [] HENT: Denies nasal congestion or sore throat. [] Respiratory: Reports cough and shortness of breath Cardiovascular: Denies chest pain or edema. [] GI: Denies abdominal pain, nausea, vomiting, bloody stools or diarrhea. [] : Denies dysuria. [] Musculoskeletal: Denies back pain or joint pain. [] Integument: Denies rash. [] Neurologic: Denies headache, focal weakness or sensory changes. [] Psychiatric: Denies depression or anxiety. [] (RADHA BEARD STUDENT UNION CONSULTANT) Heart Score: C/O Chest Pain: N/A Risk Factors: Risk Factors: DM, Current or recent (<one month) smoker, HTN, HLP, family history of CAD, obesity. Risk Scores: Score 0 - 3: 2.5% MACE over next 6 weeks - Discharge Home Score 4 - 6: 20.3% MACE over next 6 weeks - Admit for Clinical Observation Score 7 - 10: 72.7% MACE over next 6 weeks - Early Invasive Strategies (RADHA BEARD STUDENT UNION CONSULTANT) Allergies: Allergies: Allergies Coded Allergies Type Severity Reaction Last Updated Verified No Known Drug Allergies 06/14/21 No (RADHA BEARD STUDENT UNION CONSULTANT) Physical Exam: PE: Constitutional: Well developed, well nourished, no acute distress, non-toxic appearance. [] HENT: Normocephalic, atraumatic, bilateral external ears normal, oropharynx moist, no oral exudates, nose normal. [] Eyes: PERRLA, EOMI, conjunctiva normal, no discharge. [] Neck: Normal range of motion, no tenderness, supple, no stridor. [] Cardiovascular:Heart rate regular rhythm, no murmur [] Lungs & Thorax: Bilateral breath sounds clear to auscultation [] Abdomen: Bowel sounds normal, soft, no tenderness, no masses, no pulsatile masses. [] Skin: Warm, dry, no erythema, no rash. [] Back: No tenderness, no CVA tenderness. [] Extremities: No tenderness, no cyanosis, no clubbing, ROM intact, no edema. [] Neurologic: Alert and oriented X 3, normal motor function, normal sensory function, no focal deficits noted. [] Psychologic: Affect normal, judgement normal, mood normal. [] (RADHA BEARD APRN) Current Patient Data: Labs: Laboratory Tests Test 08/07/21 14:04 White Blood Count 9.4 x10^3/uL (4.0-11.0) Red Blood Count 4.97 x10^6/uL (4.30-5.70) Hemoglobin 15.3 g/dL (13.0-17.5) Hematocrit 44.7 % (39.0-53.0) Mean Corpuscular Volume 90 fL (79-100) Mean Corpuscular Hemoglobin 31 pg (25-35) Mean Corpuscular Hemoglobin Concent 34 g/dL (31-37) Red Cell Distribution Width 14.5 % (11.5-14.5) Platelet Count 210 x10^3/uL (140-400) Neutrophils (%) (Auto) 65 % (31-73) Lymphocytes (%) (Auto) 21 % (24-48) L Monocytes (%) (Auto) 10 % (0-9) H Eosinophils (%) (Auto) 4 % (0-3) H Basophils (%) (Auto) 1 % (0-3) Neutrophils # (Auto) 6.1 x10^3/uL (1.8-7.7) Lymphocytes # (Auto) 2.0 x10^3/uL (1.0-4.8) Monocytes # (Auto) 0.9 x10^3/uL (0.0-1.1) Eosinophils # (Auto) 0.3 x10^3/uL (0.0-0.7) Basophils # (Auto) 0.1 x10^3/uL (0.0-0.2) Sodium Level 138 mmol/L (136-145) Potassium Level 4.0 mmol/L (3.5-5.1) Chloride Level 103 mmol/L (98-107) Carbon Dioxide Level 27 mmol/L (21-32) Anion Gap 8 (6-14) Blood Urea Nitrogen 25 mg/dL (8-26) Creatinine 1.1 mg/dL (0.7-1.3) Estimated GFR (Cockcroft-Gault) 66.0 BUN/Creatinine Ratio 23 (6-20) H Glucose Level 98 mg/dL (70-99) Calcium Level 8.5 mg/dL (8.5-10.1) Magnesium Level 2.5 mg/dL (1.8-2.4) H Total Bilirubin 0.6 mg/dL (0.2-1.0) Aspartate Amino Transferase (AST) 21 U/L (15-37) Alanine Aminotransferase (ALT) 22 U/L (16-63) Alkaline Phosphatase 50 U/L (46-116) Troponin I High Sensitivity 5 ng/L (4-75) UR-Ict-Q-Type Natriuretic Peptide 22 pg/mL (0-124) Total Protein 7.4 g/dL (6.4-8.2) Albumin 3.4 g/dL (3.4-5.0) Albumin/Globulin Ratio 0.9 (1.0-1.7) L Laboratory Tests 08/07/21 14:04 Laboratory Tests 08/07/21 14:04 Vital Signs: Vital Signs Date Time Temp Pulse Resp B/P (MAP) Pulse Ox O2 Delivery O2 Flow Rate FiO2 08/07/21 15:14 82 16 126/76 (93) 98 08/07/21 13:17 98.9 Room Air 98.9 (RADHA BEARD STUDENT UNION CONSULTANT) EKG: EK interpreted by Dr. Dowd sinus rhythm heart rate 93 no STEMI [] (RADHA BEARD STUDENT UNION CONSULTANT) Radiology/Procedures: Radiology/Procedures: []PROCEDURE: PORTABLE CHEST 1V XR CHEST 1V History: Reason: SOA, fever, cough / Spl. Instructions: / History: Comparison: June 14, 2021 Findings: No consolidation or pleural effusion. Normal heart size. No pneumothorax. Impression: 1. No acute cardiopulmonary process. Electronically signed by: Bakari Hernández DO (08/07/2021 1:46 PM) [id number] DICTATED and SIGNED BY: BAKARI HERNÁNDEZ DO DATE: 08/07/21 1345 (RADHA BEARD APRN) Course & Med Decision Making: Course & Med Decision Making Pertinent Labs and Imaging studies reviewed. (See chart for details) This is a 71-year-old male patient presented to the ED today with complaints of cough and shortness of breath, symptoms have been going on for 3 months. Raquel jess has been following up with the PCP and has been seen in our ED for this. O2 sats 99% on room air, temperature 98.9, respiration 18, blood pressure 131/77, heart rate 82 Chest x-ray interpreted by radiologist is negative, CBC CMP with no acute findings. EKG is negative, high-sensitivity troponin is negative. Patient was discharged home with albuterol inhaler. Follow-up with PCP in the course of this week. Provided return precautions. (RADHA BEARD APRN) Dragon Disclaimer: Dragon Disclaimer: This electronic medical record was generated, in whole or in part, using a voice recognition dictation system. (RADHA BEARD APRN) Departure Departure Impression: Primary Impression: Bronchitis Disposition: HOME / SELF CARE / HOMELESS Condition: STABLE Referrals: MORA DEAN MD (PCP) follow up with your doctor in the course of this week Patient Instructions: Acute Bronchitis Additional Instructions: You were evaluated in the emergency room for cough and shortness of breath, your chest x-ray is negative for any acute findings, your lab work is negative for any acute findings. We encourage you to follow-up with your own doctor in 1 we ek. Use albuterol inhaler as needed for shortness of breath. Scripts Albuterol Sulfate (VENTOLIN HFA INHALER) 18 Gm Hfa.aer.ad 2 PUFF INH Q4HRS for FOR ASTHMA, #1 EACH 0 Refills Prov: RADHA BEARD APRN 08/07/21 Attending Signature I have participated in the care of this patient and I have reviewed and agree with all pertinent clinical information above including history, exam, and recommendations. (MILA DOWD DO) RADHA BEARD STUDENT UNION CONSULTANT Aug 07, 2021 15:35 MILA DOWD DO Aug 07, 2021 16:03
--- NOTE | 2021-08-08 00:47 | EKG ---
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
== END 2021-08-07 15:30 | disposition home or self-care (01) ==
LOC: ER 12:50
DX: J40 Bronchitis, not specified as acute or chronic (principal); Z20.822 Contact with and (suspected) exposure to COVID-19
CPT/HCPCS: 36415; 71045; 80053; 83605; 83735; 83880; 84145; 84484; 85025; 87040; 87426; 87428; 93005; 99285; C9803; U0003